=== PATIENT | male | born 1960 | race Caucasian/White ===

== ENCOUNTER 2018-06-09 10:27 | Emergency (ER) | payer OTHER ==
[2018-06-09] MEDS ORDERED: ONDANSETRON 4 MG/2 ML VIAL ONE ×2 (10:44→13:45)
[2018-06-09] MEDS ORDERED: MORPHINE 4 MG/ML SYR ONE (10:57)
[2018-06-09] MEDS ORDERED: NA CHLORIDE 0.9% 1,000 ML ONE ×2 (10:57→13:34)
[2018-06-09 11:08] LABS: Absolute Lymphocytes (CBC) 0.9 K/uL (0.7-4.9); Absolute Monocytes 1.3 K/uL (0.1-1.3); Absolute Neutrophil 17.4 K/uL (1.8-8.0); Basophils % 0.1 % (0-1.3); Eosinophils % 1.2 % (0-4.4); Hematocrit 48.4 % (39.6-49.0); Lymphocytes % 4.7 % (15.3-44.8); MCH 28.2 pg (27.0-35.0); MPV 7.9 fL (7.6-11.3); Monocytes % 6.4 % (3.3-12.3)
[2018-06-09 11:40] LABS: Blood Morphology Comment NOT SEEN (NOT SEEN); Platelet Estimate ADEQ; Urine White Blood Cell Casts OK
[2018-06-09 11:44] LABS: Protime INR 0.93
[2018-06-09 12:05] LABS: Magnesium 2.3 mg/dL (1.8-2.4); Troponin (Emerg Dept Use Only) < 0.02 ng/mL (0.0-0.045)
[2018-06-09 12:06] LABS: Albumin 4.3 g/dL (3.4-5.0); Bilirubin Direct 0.2 mg/dL (0-0.2); Bilirubin Total 0.8 mg/dL (0.2-1.0); Potassium 3.9 mmol/L (3.5-5.1); Protein, Total 8.4 g/dL (6.4-8.2)
--- NOTE | 2018-06-09 13:07 | RAD REPORT ---
EXAM DESCRIPTION: CT - Abdomen Pelvis W Contrast - 06/09/2018 12:49 pm CLINICAL HISTORY: Abdominal pain with nausea. COMPARISON: none. TECHNIQUE: Computed axial tomography of the abdomen pelvis was obtained. 100 cc Isovue-300 was admin istered intravenously. Oral contrast was not requested which limits evaluation of bowel. All CT scans are performed using dose optimization technique throughout nondilated small bowel approp riate and may include automated exposure control or mA/KV adjustment according to patient size. FINDINGS: The liver, spleen, pancreas, adrenal and left kidney are unremarkable. A nonobstructing 1 millimeter right renal calculus is present Diverticula stem from the colon without evidence of diverticulitis. The appendix is normal. Fluid is present throughout nondilated small bowel. The stomach is mildly distended. A tiny umbilical hernia is present. IMPRESSION: Fluid throughout nondilated small bowel may indicate an enteritis Mild gastric distention all
--- NOTE | 2018-06-09 13:32 | RAD REPORT ---
EXAM DESCRIPTION: Wilmer Single View06/09/2018 11:30 am CLINICAL HISTORY: Abdominal pain COMPARISON: none FINDINGS: The lungs appear clear of acute infiltrate. The heart is normal size IMPRESSION: No acute abnormalities displayed
[2018-06-09] MEDS ORDERED: PROMETHAZINE 25 MG/ML VIAL ONE (15:10)
--- NOTE | 2018-06-09 15:11 | ER ---
Nurse's Notes [facility] Name: Arron Pablo Age: 57 yrs Sex: Male : 1960 Arrival Date: 06/09/2018 Time: 10:28 Bed 16 Private MD: out of town, doctor Diagnosis: Nausea and vomiting Presentation: 06/09 10:32 Presenting complaint: Patient states: Abdominal cramping and indigestion with nausea aj that started this AM. Transition of care: patient was not received from another setting of care. Onset of symptoms was June 09, 2018. Risk Assessment: Do you want to hurt yourself or someone else? Patient reports no desire to harm self or others. Initial Sepsis Screen: Does the patient meet any 2 criteria? No. Patient's initial sepsis screen is negative. Does the patient have a suspected source of infection? No. Patient's initial sepsis screen is negative. Care prior to arrival: None. 10:32 Method Of Arrival: Ambulatory aj 10:32 Acuity: ARIS 3 aj Triage Assessment: 10:34 General: Appears in no apparent distress. uncomfortable, Behavior is calm, cooperative, aj appropriate for age. Pain: Complains of pain in epigastric area, right upper quadrant and left upper quadrant. Neuro: Level of Consciousness is awake, alert, obeys commands, Oriented to person, place, time, situation, Appropriate for age. Respiratory: Airway is patent Respiratory effort is even, unlabored, Respiratory pattern is regular, symmetrical. GI: Abdomen is flat, Reports upper abdominal pain, epigastric pain, nausea. Derm: Skin is intact, is healthy with good turgor, Skin is pink, warm \\T\\ dry. normal. Historical: - Allergies: 10:34 No Known Allergies; aj - Home Meds: 10:34 Metoprolol Tartrate Oral [Active]; aspirin 325 mg Oral tab 1 tab once daily [Active]; aj - PMHx: 10:34 Atrial Fib; aj - PSHx: 10:34 None; aj - Immunization history:: Adult Immunizations up to date. - Social history:: Smoking status: Patient/guardian denies using tobacco. - Ebola Screening: : Patient negative for fever greater than or equal to 101.5 degrees Fahrenheit, and additional compatible Ebola Virus Disease symptoms Patient denies exposure to infectious person Patient denies travel to an Ebola-affected area in the 21 days before illness onset No symptoms or risks identified at this time. Screenin:55 Abuse screen: Denies threats or abuse. Denies injuries from another. Nutritional jl7 screening: No deficits noted. Tuberculosis screening: No symptoms or risk factors identified. Fall Risk IV access (20 points). Total Babin Fall Scale indicates No Risk (0-24 pts). Assessment: 10:55 General: Appears in no apparent distress. uncomfortable, ill, Behavior is calm, jl7 cooperative, appropriate for age. Pain: Complains of pain in right lower quadrant and left lower quadrant Pain radiates to left low back Pain currently is 1 out of 10 on a pain scale. at worst was 10 out of 10 on a pain scale. Pain began 0600 Is intermittent, Alleviated by Pt vomited and reports the pain is better after vomiting. Neuro: Level of Consciousness is awake, alert, obeys commands, Oriented to person, place, time, situation. Cardiovascular: Patient's skin is warm and dry. Respiratory: Airway is patent Respiratory effort is even, unlabored, Respiratory pattern is regular, symmetrical. GI: Bowel sounds present X 4 quads. Abd is soft Abdomen is tender to palpation X 4 quads. Reports nausea, vomiting. : No signs and/or symptoms were reported regarding the genitourinary system. EENT: No signs and/or symptoms were reported regarding the EENT system. Derm: Skin is pink, warm \\T\\ dry. Musculoskeletal: No signs and/or symptoms reported regarding the musculoskeletal system. 10:56 Reassessment: pt states, I want to hold off on the pain meds, morphine", morphine 4mg hj vial handed off to ADAN Diaz. 11:56 Reassessment: Patient appears in no apparent distress at this time. No changes from jl7 previously documented assessment. Patient and/or family updated on plan of care and expected duration. Pain level reassessed. Patient is alert, oriented x 3, equal unlabored respirations, skin warm/dry/pink. 13:42 Reassessment: Pt c/o of nausea, requesting Zofran. Provider notified, see MAR for jl7 orders. 14:00 Reassessment: Patient appears in no apparent distress at this time. Patient states jl7 symptoms have improved. 15:00 Reassessment: Patient appears in no apparent distress at this time. Patient and/or jl7 family updated on plan of care and expected duration. Pain level reassessed. Patient is alert, oriented x 3, equal unlabored respirations, skin warm/dry/pink. Pt c/o of nausea, Provider notified, see MAR for orders. Vital Signs: 10:34 BP 153 / 93; Pulse 97; Resp 18; Temp 97.1; Pulse Ox 98% on R/A; Weight 88.45 kg; Height aj 6 ft. 1 in. (185.42 cm); 11:00 BP 138 / 91; Pulse 90; Resp 18 S; Pulse Ox 95% on R/A; jl7 11:55 BP 130 / 88; Pulse 86; Resp 16; Pulse Ox 95% on R/A; jl7 13:41 BP 142 / 83; Pulse 82; Resp 17; Pulse Ox 94% ; mh5 14:43 BP 139 / 81; Pulse 84; Resp 18; Pulse Ox 95% on R/A; 5 15:29 BP 114 / 89; Pulse 90; Resp 16 S; Pulse Ox 95% on R/A; jl7 10:34 Body Mass Index 25.73 (88.45 kg, 185.42 cm) ED Course: 10:28 Patient arrived in ED. mr 10:28 out of town, doctor is Private Physician. mr 10:33 Triage completed. aj 10:34 Arm band placed on left wrist. Patient placed in an exam room. aj 10:35 Santino Samaniego, MARCO is PHCP. pm1 10:35 eDsean Colmenares MD is Attending Physician. pm1 10:45 Inserted saline lock: 22 gauge in right antecubital area, using aseptic technique. hj Blood collected. 10:55 Patient has correct armband on for positive identification. Placed in gown. Bed in low jl7 position. Call light in reach. Side rails up X 1. flame cutting supervisor on. Pulse ox on. NIBP on. Warm blanket given. 11:04 Radiology exam delayed due to lab results not completed at this time. (BUN/Creatinine). sj 11:18 EKG done, by technology advisor. reviewed by Santino Samaniego NP. at1 11:21 Joe Ashley, ADAN is Primary Nurse. jl7 11:30 XRAY Chest (1 view) In Process Unspecified. EDMS 12:50 CT Abd/Pelvis - W/Contrast: IV contrat only In Process Unspecified. EDMS 15:29 No provider procedures requiring assistance completed. IV discontinued, intact, jl7 bleeding controlled, No redness/swelling at site. Pressure dressing applied. Administered Medications: 10:45 Drug: Zofran 4 mg Route: IVP; Site: right antecubital; hj 11:26 Follow up: Response: No adverse reaction; Nausea is decreased hj 10:45 Drug: NS 0.9% 1000 ml Route: IV; Rate: 1000 ml; Site: right antecubital; hj 11:26 Follow up: IV Status: Infusion continued hj 13:20 Drug: NS 0.9% 1000 ml Route: IV; Rate: 125 ml/hr; Site: right antecubital; jl7 15:24 Follow up: Response: No adverse reaction; IV Status: Order to discontinue infusion jl7 13:42 Drug: Zofran 4 mg Route: IVP; Site: right antecubital; jl7 14:00 Follow up: Response: No adverse reaction; Nausea is decreased jl7 15:07 Drug: Phenergan 12.5 mg Route: IVP; Site: right antecubital; jl7 15:25 Follow up: Response: No adverse reaction; Nausea is decreased jl7 15:25 Not Given (Patient Refused): morphine 4 mg IVP once jl7 Outcome: 15:10 Discharge ordered by . pm1 15:29 Discharged to home ambulatory, with family. jl7 15:29 Condition: stable 15:29 Discharge instructions given to patient, family, Instructed on discharge instructions, follow up and referral plans. medication usage, Demonstrated understanding of instructions, follow-up care, medications, Prescriptions given X 3. 15:30 Patient left the ED. jl7 Signatures: Dispatcher [employer] EDUT Roseanna Marcum, RN ADAN Graves, Sarah mr BenitezSoo Amanda, car shagger EKG Tat1 Rod Kenny RN RN hj Marinas, Patrick, MARCO FUSION JUNCTURE GRINDER pm1 A[facility] Joe Ashley RN RN jl7
--- NOTE | 2018-06-09 15:11 | EDPHYS ---
Physician Documentation [facility] Name: Arron Pablo Age: 57 yrs Sex: Male : 1960 Arrival Date: 06/09/2018 Time: 10:28 Bed 16 Private MD: out of town, doctor ED Physician Desean Colmenares HPI: 06/09 11:00 This 57 yrs old Male presents to ER via Ambulatory with complaints of pm1 Abdominal Pain. 11:00 The patient presents with abdominal pain in the left lower quadrant. Onset: The pm1 symptoms/episode began/occurred this morning, at 05:00. The symptoms do not radiate. Associated signs and symptoms: Pertinent positives: nausea and vomiting, Loose stools, Pertinent negatives: chest pain, dysuria, fever, shortness of breath. The symptoms are described as sharp. Modifying factors: The symptoms are alleviated by nothing, the symptoms are aggravated by nothing. Severity of pain: in the emergency department the pain has improved primarily nauseated. The patient has not experienced similar symptoms in the past. The patient has not recently seen a physician, out of town. Patient ate [employer] station food last night from [employer] and had half a beer. Patient reports onset of abdominal pain LLQ with vomiting at 0500 this AM. Reports multiple episodes of vomiting and 2 episodes of loose stools. On arrival here to ER, pain has improved but has nausea and vomiting. Actively vomiting here in the ER. Historical: - Allergies: 10:34 No Known Allergies; aj - Home Meds: 10:34 Metoprolol Tartrate Oral [Active]; aspirin 325 mg Oral tab 1 tab once daily [Active]; aj - PMHx: 10:34 Atrial Fib; aj - PSHx: 10:34 None; aj - Immunization history:: Adult Immunizations up to date. - Social history:: Smoking status: Patient/guardian denies using tobacco. - Ebola Screening: : Patient negative for fever greater than or equal to 101.5 degrees Fahrenheit, and additional compatible Ebola Virus Disease symptoms Patient denies exposure to infectious person Patient denies travel to an Ebola-affected area in the 21 days before illness onset No symptoms or risks identified at this time. ROS: 11:00 Constitutional: Negative for fever, chills, and weight loss, Eyes: Negative for injury, pm1 pain, redness, and discharge, ENT: Negative for injury, pain, and discharge, Neck: Negative for injury, pain, and swelling, Cardiovascular: Negative for chest pain, palpitations, and edema, Respiratory: Negative for shortness of breath, cough, wheezing, and pleuritic chest pain. 11:00 Back: Negative for injury and pain, : Negative for injury, bleeding, discharge, and swelling, MS/Extremity: Negative for injury and deformity, Skin: Negative for injury, rash, and discoloration, Neuro: Negative for headache, weakness, numbness, tingling, and seizure. 11:00 Abdomen/GI: Positive for abdominal pain, nausea and vomiting, Negative for diarrhea, constipation, hematemesis, rectal pain, rectal bleeding. Exam: 11:00 Constitutional: This is a well developed, well nourished patient who is awake, alert, pm1 and in no acute distress. Head/Face: Normocephalic, atraumatic. Eyes: Pupils equal round and reactive to light, extra-ocular motions intact. Lids and lashes normal. Conjunctiva and sclera are non-icteric and not injected. Cornea within normal limits. Periorbital areas with no swelling, redness, or edema. ENT: Nares patent. No nasal discharge, no septal abnormalities noted. Tympanic membranes are normal and external auditory canals are clear. Oropharynx with no redness, swelling, or masses, exudates, or evidence of obstruction, uvula midline. Mucous membranes moist. Neck: Trachea midline, no thyromegaly or masses palpated, and no cervical lymphadenopathy. Supple, full range of motion without nuchal rigidity, or vertebral point tenderness. No Meningismus. Chest/axilla: Normal chest wall appearance and motion. Nontender with no deformity. No lesions are appreciated. Cardiovascular: Regular rate and rhythm with a normal S1 and S2. No gallops, murmurs, or rubs. Normal PMI, no JVD. No pulse deficits. Respiratory: Lungs have equal breath sounds bilaterally, clear to auscultation and percussion. No rales, rhonchi or wheezes noted. No increased work of breathing, no retractions or nasal flaring. 11:00 Back: No spinal tenderness. No costovertebral tenderness. Full range of motion. Skin: Warm, dry with normal turgor. Normal color with no rashes, no lesions, and no evidence of cellulitis. MS/ Extremity: Pulses equal, no cyanosis. Neurovascular intact. Full, normal range of motion. 11:00 Abdomen/GI: Inspection: abdomen appears normal, Bowel sounds: normal, Palpation: abdomen is soft and non-tender, mass, is not appreciated, rebound tenderness, is not appreciated. 11:00 Neuro: Orientation: is normal, Motor: is normal, moves all fours. 15:00 Abdomen/GI: Inspection: abdomen appears normal, Bowel sounds: normal, Palpation: pm1 abdomen is soft and non-tender, in all quadrants, rebound tenderness, is not appreciated. Vital Signs: 10:34 BP 153 / 93; Pulse 97; Resp 18; Temp 97.1; Pulse Ox 98% on R/A; Weight 88.45 kg; Height aj 6 ft. 1 in. (185.42 cm); 11:00 BP 138 / 91; Pulse 90; Resp 18 S; Pulse Ox 95% on R/A; jl7 11:55 BP 130 / 88; Pulse 86; Resp 16; Pulse Ox 95% on R/A; jl7 13:41 BP 142 / 83; Pulse 82; Resp 17; Pulse Ox 94% ; mh5 14:43 BP 139 / 81; Pulse 84; Resp 18; Pulse Ox 95% on R/A; mh5 15:29 BP 114 / 89; Pulse 90; Resp 16 S; Pulse Ox 95% on R/A; jl7 10:34 Body Mass Index 25.73 (88.45 kg, 185.42 cm) aj MDM: 10:35 Patient medically screened. pm1 15:01 Data reviewed: vital signs. Data interpreted: Pulse oximetry: on room air is 95 %. pm1 Interpretation: normal. Counseling: I had a detailed discussion with the patient and/or guardian regarding: the historical points, exam findings, and any diagnostic results supporting the discharge/admit diagnosis, lab results, radiology results. 15:05 Refusal of service: The patient/guardian displays adequate decision making capability pm1 and despite a detailed discussion of alternatives, benefits, risks, and consequences refuses: Admission to the hospital for further work-up and treatment, Patient wants to go home with nausea medications and pain medications. Patient educated on return precautions and clear liquid diet. present at bedside and agrees with patient's decision. 15:08 Counseling: I had a detailed discussion with the patient and/or guardian regarding: the pm1 historical points, exam findings, and any diagnostic results supporting the discharge/admit diagnosis, lab results, radiology results, the need for outpatient follow up, to return to the emergency department if symptoms worsen or persist or if there are any questions or concerns that arise at home. 06/09 10:37 Order name: Basic Metabolic Panel; Complete Time: 12:07 pm1 06/09 10:37 Order name: CBC with Diff; Complete Time: 11:46 pm1 06/09 10:37 Order name: Hepatic Function; Complete Time: 12:07 pm1 06/09 10:37 Order name: Lipase; Complete Time: 12:07 pm1 06/09 11:02 Order name: Magnesium; Complete Time: 12:07 pm1 06/09 11:02 Order name: PT-INR; Complete Time: 11:46 pm1 06/09 10:40 Order name: CT Abd/Pelvis - W/Contrast: IV contrat only; Complete Time: 13:51 pm1 06/09 11:02 Order name: Troponin (emerg Dept Use Only); Complete Time: 12:07 pm1 06/09 11:02 Order name: XRAY Chest (1 view); Complete Time: 13:51 pm1 06/09 11:11 Order name: CBC Smear Scan; Complete Time: 11:46 EDMS 06/09 12:19 Order name: Urine Dipstick--Ancillary (enter results); Complete Time: 15:26 eb 06/09 10:37 Order name: IV Saline Lock; Complete Time: 10:48 pm1 06/09 10:37 Order name: Labs collected and sent; Complete Time: 10:53 pm1 06/09 11:02 Order name: EKG; Complete Time: 11:03 pm1 06/09 11:02 Order name: Cardiac monitoring; Complete Time: 11:21 pm1 06/09 11:02 Order name: EKG - Nurse/Tech; Complete Time: 11:21 pm1 Administered Medications: 10:45 Drug: Zofran 4 mg Route: IVP; Site: right antecubital; hj 11:26 Follow up: Response: No adverse reaction; Nausea is decreased 10:45 Drug: NS 0.9% 1000 ml Route: IV; Rate: 1000 ml; Site: right antecubital; hj 11:26 Follow up: IV Status: Infusion continued hj 13:20 Drug: NS 0.9% 1000 ml Route: IV; Rate: 125 ml/hr; Site: right antecubital; jl7 15:24 Follow up: Response: No adverse reaction; IV Status: Order to discontinue infusion jl7 13:42 Drug: Zofran 4 mg Route: IVP; Site: right antecubital; jl7 14:00 Follow up: Response: No adverse reaction; Nausea is decreased jl7 15:07 Drug: Phenergan 12.5 mg Route: IVP; Site: right antecubital; jl7 15:25 Follow up: Response: No adverse reaction; Nausea is decreased jl7 15:25 Not Given (Patient Refused): morphine 4 mg IVP once jl7 Disposition: 16:04 Co-signature as Attending Physician, Desean Colmenares MD. rn Disposition: 06/09/18 15:10 Discharged to Home. Impression: Nausea and vomiting. - Condition is Stable. - Discharge Instructions: Clear Liquid Diet, Adult, Food Poisoning, Nausea and Vomiting, Adult, Acute Pancreatitis, Viral Gastroenteritis, Adult. - Prescriptions for Tylenol- Codeine #3 300-30 mg Oral Tablet - take 2 tablets by ORAL route every 6 hours As needed; 20 tablet. Zofran 4 mg Oral Tablet - take 1 tablet by ORAL route every 12 hours As needed; 20 tablet. promethazine 25 mg Oral Tablet - take 1 tablet by ORAL route every 6 hours As needed; 20 tablet. - Medication Reconciliation Form, Thank You Letter, Antibiotic Education, Prescription Opioid Use form. - Follow up: Emergency Department; When: As needed; Reason: Worsening of condition. Follow up: Private Physician; When: 2 - 3 days; Reason: Recheck today's complaints, Continuance of care, Re-evaluation by your physician. - Problem is new. - Symptoms have improved. Signatures: Dispatcher [employer] EDRoseanna Frost RN RN aj Nieto, Roman, MD MD rn Joaquin, Henry, RN RN hj Marinas, Patrick, MARCO CARCASS TRIMMER pm1 Joe Ashley RN RN jl7 Corrections: (The following items were deleted from the chart) 15:12 15:10 06/09/2018 15:10 Discharged to Home. Impression: Acute pancreatitis; Vomiting. pm1 Condition is Stable. Forms are Medication Reconciliation Form, Thank You Letter, Antibiotic Education, Prescription Opioid Use. Follow up: Emergency Department; When: As needed; Reason: Worsening of condition. Follow up: Private Physician; When: 2 - 3 days; Reason: Recheck today's complaints, Continuance of care, Re-evaluation by your physician. Problem is new. Symptoms have improved. pm1 15:15 15:12 06/09/2018 15:10 Discharged to Home. Impression: Vomiting; Gastroenteritis. pm1 Condition is Stable. Discharge Instructions: Nausea and Vomiting, Adult. Forms are Medication Reconciliation Form, Thank You Letter, Antibiotic Education, Prescription Opioid Use. Follow up: Emergency Department; When: As needed; Reason: Worsening of condition. Follow up: Private Physician; When: 2 - 3 days; Reason: Recheck today's complaints, Continuance of care, Re-evaluation by your physician. Problem is new. Symptoms have improved. pm1 15:30 15:15 06/09/2018 15:10 Discharged to Home. Impression: Nausea and vomiting. Condition jl7 is Stable. Discharge Instructions: Nausea and Vomiting, Adult, Food Poisoning, Acute Pancreatitis, Viral Gastroenteritis, Adult, Clear Liquid Diet, Adult. Prescriptions for Tylenol-Codeine #3 300-30 mg Oral Tablet - take 2 tablets by ORAL route every 6 hours As needed; 20 tablet, Zofran 4 mg Oral Tablet - take 1 tablet by ORAL route every 12 hours As needed; 20 tablet, promethazine 25 mg Oral Tablet - take 1 tablet by ORAL route every 6 hours As needed; 20 tablet. and Forms are Medication Reconciliation Form, Thank You Letter, Antibiotic Education, Prescription Opioid Use. Follow up: Emergency Department; When: As needed; Reason: Worsening of condition. Follow up: Private Physician; When: 2 - 3 days; Reason: Recheck today's complaints, Continuance of care, Re-evaluation by your physician. Problem is new. Symptoms have improved. pm1
[2018-06-09 15:21] LABS: Urine Blood NEGATIVE (NEG); Urine Glucose NEGATIVE (NEG); Urine Protein NEGATIVE (NEG); Urine pH 5.5 (5.0-7.0)
--- NOTE | 2018-06-10 06:52 | EKG ---
Test Date: 2018-06-09 Test Time: 11:16:59 Engine Dispatcher: RAVEN MEASUREMENT RESULTS: Intervals: Rate: 83 NM: 156 QRSD: 100 QT: 386 QTc: 453 [place]: P: 23 NM: 156 QRS: -27 T: 38 INTERPRETIVE STATEMENTS: Normal sinus rhythm Minimal voltage criteria for LVH, may be normal variant Borderline ECG No previous ECG available for comparison Electronically Signed On 06-10-18 06:49:24 CDT by Mil Sanchez
== END 2018-06-09 15:30 | disposition home or self-care (01) ==
LOC: ER 10:27
DX: R11.2 Nausea with vomiting, unspecified (principal); I48.91 Unspecified atrial fibrillation; Z79.82 Long term (current) use of aspirin
CPT/HCPCS: 36415; 71045; 74177; 80048; 80076; 81003; 83690; 83735; 84484; 85025; 85610; 93005; 96361; 96374; 96375; 99285; J2405; J2550; J7030; Q9967